=== PATIENT | female | born 1945 | race Caucasian/White ===

== ENCOUNTER 2017-08-22 11:21 | Inpatient (IN) | payer MEDICARE, MEDICAID ==
[~2017-08-22] VITALS: Ht 162.6 cm; Wt 52.0 kg
[~2017-08-22 11:21] MED LIST: AZIT-55 PO; COMIN IH; CYAN1TAB41; ESTR0.6261 PO; FEXO-61 PO; FLUT16SP12; KEN0.1O TP; LISI-600 PO; LORA-512 PO; METO50TA7 PO; MOME17SP BOTHNARES; MULT1TAB74 PO; NYST30CR2 TP; OMEG-79 PO; OMEP20TA5 PO; OXYB5TAB11 PO; RANI150T8 PO; SIME125C87 CORPAK; TRAZ-143 PO
[2017-08-22 12:28] LABS: BASOPHILS % (AUTO) 0.2 % (0-1); EOSINOPHILS # (AUTO) 0.2 X10'3 (0-0.9); EOSINOPHILS % (AUTO) 1.8 % (0-6); HEMATOCRIT 39.4 % (35.0-45.0); HEMOGLOBIN 13.3 g/dl (12.0-16.0); LYMPHOCYTES # (AUTO) 1.8 X10'3 (1.1-4.8); LYMPHOCYTES % (AUTO) 17.1 % (21-51); MEAN CORPUSCULAR HEMOGLOBIN 31.7 PG (27.0-31.0); MEAN CORPUSCULAR HGB CONC 33.7 % (33.0-36.5); MEAN PLATELET VOLUME 9.4 FL (7.4-10.4); MONOCYTES # (AUTO) 0.4 X10'3 (0-0.9); NEUTROPHILS # (AUTO) 8.2 X10'3 (1.8-7.7); NEUTROPHILS % (AUTO) 76.9 % (42-75); PLATELET COUNT 270 X10'3 (140-440); RED CELL DISTRIBUTION WIDTH 13.8 % (11.5-14.5); WHITE BLOOD COUNT 10.7 X10'3 (4.5-11.0)
[2017-08-22] MEDS ORDERED: ASPI-611 PO (12:35)
[2017-08-22] MEDS ORDERED: CHOL10002 PO (12:35)
[2017-08-22] MEDS ORDERED: LACT1CAP65 PO (12:35)
[2017-08-22] MEDS ORDERED: LOSA50TA3 PO (12:38)
[2017-08-22 12:46] LABS: PARTIAL THROMBOPLASTIN TIME 28 SECONDS (22-32)
[2017-08-22 12:50] LABS: ALANINE AMINOTRANSFERASE 25 U/L (12-78); ALBUMIN 3.6 G/DL (3.4-5.0); ALBUMIN/GLOBULIN RATIO 0.9 (1.1-1.5); ALKALINE PHOSPHATASE 77 IU/L (46-116); ANION GAP 7 (8-16); ASPARTATE AMINO TRANSFERASE 17 U/L (10-37); BILIRUBIN,TOTAL 0.3 MG/DL (0.1-1.0); BLOOD UREA NITROGEN 10 MG/DL (7-18); CALCIUM 9.7 MG/DL (8.5-10.1); CHLORIDE 102 MMOL/L (99-107); CREATININE 0.83 MG/DL (0.40-0.90); GLUCOSE 127 MG/DL (70-104); POTASSIUM 4.1 MMOL/L (3.5-5.1); SODIUM 137 MMOL/L (135-145); TOTAL CARBON DIOXIDE 28.4 MMOL/L (24-32); TOTAL PROTEIN 7.5 G/DL (6.4-8.2); eGFR 68 ML/MIN
[2017-08-22 12:54] LABS: TROPONIN I < 0.04 NG/ML (0.0-0.05)
[2017-08-22] MEDS ORDERED: aspirin 325mg tablet PO ONE (13:30)
[2017-08-22] MEDS ORDERED: HYDROcodone/acetaminophen 5mg/325mg tablet PO PRN (13:45)
[2017-08-22] MEDS ORDERED: magnesium 2GM in 50ml NS 50 ML IV PRN (13:45)
[2017-08-22] MEDS ORDERED: ipratropium/albuterol 3ml nebule NEB PRN (13:45)
[2017-08-22] MEDS ORDERED: magnesium 4gm in 100ml NS 100 ML IV PRN (13:45)
[2017-08-22] MEDS ORDERED: magnesium hydroxide 30ml (MOM) UD suspension PO PRN (13:45)
[2017-08-22] MEDS ORDERED: potassium Cl 20 mEq SR tablet PO PRN ×2 (13:45)
[2017-08-22] MEDS ORDERED: mag hydrox/Alum hydrox/simeth 30ml oral suspension PO PRN (13:45)
[2017-08-22] MEDS ORDERED: magnesium Cl slow-release 64mg tablet PO PRN (13:45)
[2017-08-22] MEDS ORDERED: albuterol 2.5 MG/3 ML nebule NEB PRN (13:45)
[2017-08-22] MEDS ORDERED: acetaminophen 325mg tablet PO PRN (13:45)
[2017-08-22] MEDS ORDERED: ondansetron/PF 4mg/2ml inj IV PRN (13:45)
[2017-08-22] MEDS ORDERED: HYDROcodone/acetaminophen 10/325mg tab PO PRN (13:45)
[2017-08-22] MEDS ORDERED: potassium Cl 40MEQ/NS 500ml 500 ML IV PRN ×2 (13:45)
[2017-08-22 14:11] LABS: CHOL/HDL RATIO 4.5 (0.00-4.99); CHOLESTEROL 183 MG/DL (0-200); HDL CHOLESTEROL 41 MG/DL (35-60); LDL CHOLESTEROL 102 MG/DL (50-100); TRIGLYCERIDES 212 MG/DL (20-135)
[2017-08-22 16:11] VITALS: BP 202/99
[2017-08-22] MEDS: normal saline 1000ml 1,000 ML IV SCH (16:57)
[2017-08-22 18:00] VITALS: BP 188/102
[2017-08-22] MEDS ORDERED: FEXOFENADINE HCL 60 MG PO SCH (20:00)
[2017-08-22] MEDS: RANITIDINE HCL PO SCH (20:00)
[2017-08-22] MEDS: triamcinolone acet 0.1% cream 15gm TP SCH (20:00)
[2017-08-22] MEDS: traZODone 50mg tablet PO SCH (20:50)
[2017-08-22] MEDS: famotidine 20mg tablet PO SCH (20:50)
[2017-08-22] MEDS: pantoprazole 40mg Tablet.DR PO SCH (20:50)
[2017-08-22] MEDS: oxybutynin 5mg tablet PO SCH (20:51)
[2017-08-22] MEDS ORDERED: OMEPRAZOLE PO SCH (21:00)
[2017-08-22 22:00] VITALS: BP 163/75
[2017-08-23] VITALS (7 sets, daily range): BP systolic 147–189; BP diastolic 72–89
[2017-08-23] MEDS: normal saline 1000ml 1,000 ML IV SCH ×2 (03:04→05:47)
[2017-08-23 06:42] LABS: BASOPHILS % (AUTO) 0.5 % (0-1); EOSINOPHILS # (AUTO) 0.3 X10'3 (0-0.9); EOSINOPHILS % (AUTO) 3.5 % (0-6); HEMATOCRIT 34.4 % (35.0-45.0); HEMOGLOBIN 11.6 g/dl (12.0-16.0); LYMPHOCYTES # (AUTO) 3.3 X10'3 (1.1-4.8); LYMPHOCYTES % (AUTO) 46.3 % (21-51); MEAN CORPUSCULAR HEMOGLOBIN 31.6 PG (27.0-31.0); MEAN CORPUSCULAR HGB CONC 33.8 % (33.0-36.5); MEAN CORPUSCULAR VOLUME 93.6 FL (78-98); MEAN PLATELET VOLUME 9.7 FL (7.4-10.4); MONOCYTES # (AUTO) 0.5 X10'3 (0-0.9); NEUTROPHILS # (AUTO) 3.1 X10'3 (1.8-7.7); NEUTROPHILS % (AUTO) 42.7 % (42-75); PLATELET COUNT 228 X10'3 (140-440); RED BLOOD COUNT 3.68 X10'6 (4.20-5.60); RED CELL DISTRIBUTION WIDTH 13.9 % (11.5-14.5); WHITE BLOOD COUNT 7.2 X10'3 (4.5-11.0)
[2017-08-23 06:50] LABS: ALANINE AMINOTRANSFERASE 25 U/L (12-78); ALBUMIN/GLOBULIN RATIO 0.9 (1.1-1.5); ALKALINE PHOSPHATASE 65 IU/L (46-116); ANION GAP 4 (8-16); ASPARTATE AMINO TRANSFERASE 16 U/L (10-37); BILIRUBIN,TOTAL 0.4 MG/DL (0.1-1.0); BLOOD UREA NITROGEN 8 MG/DL (7-18); BUN/CREATININE RATIO 10.5 (6.6-38.0); CALCIUM 8.7 MG/DL (8.5-10.1); CHLORIDE 109 MMOL/L (99-107); CREATININE 0.76 MG/DL (0.40-0.90); GLUCOSE 107 MG/DL (70-104); MAGNESIUM 1.7 MG/DL (1.5-2.4); POTASSIUM 3.7 MMOL/L (3.5-5.1); SODIUM 142 MMOL/L (135-145); TOTAL CARBON DIOXIDE 28.7 MMOL/L (24-32); TOTAL PROTEIN 6.3 G/DL (6.4-8.2); eGFR 75 ML/MIN
[2017-08-23] MEDS ORDERED: non-formulary drug (Aspirin (Aspir 81) 1 TAB) PO SCH (08:00)
[2017-08-23] MEDS ORDERED: non-formulary drug (Loratadine* (Alavert*) 1 TAB) PO SCH (08:00)
[2017-08-23] MEDS ORDERED: METOPROLOL SUCCINATE PO SCH (08:00)
[2017-08-23] MEDS: RANITIDINE HCL PO SCH ×2 (08:00→20:00)
[2017-08-23] MEDS: triamcinolone acet 0.1% cream 15gm TP SCH ×2 (08:00→20:59)
[2017-08-23] MEDS: lisinopril 10 MG tablet PO SCH (08:30)
[2017-08-23] MEDS: aspirin 81mg tablet.DR PO SCH (08:30)
[2017-08-23] MEDS: losartan 50mg tablet PO SCH (08:30)
[2017-08-23] MEDS: oxybutynin 5mg tablet PO SCH ×2 (08:30→20:58)
[2017-08-23] MEDS: famotidine 20mg tablet PO SCH ×2 (08:30→20:58)
[2017-08-23] MEDS: metoprolol succinate 25mg (24-HOUR) SR. Tablet PO SCH (08:30)
[2017-08-23] MEDS: atorvastatin 10mg tablet PO SCH (08:30)
[2017-08-23] MEDS: aspirin 325mg tablet, delayed-release (Ecotrin) PO SCH (08:30)
[2017-08-23] MEDS: pantoprazole 40mg Tablet.DR PO SCH ×2 (08:30→20:58)
[2017-08-23] MEDS: loratadine 10mg tablet PO SCH (08:31)
[2017-08-23] MEDS: SIMETHICONE 125 MG CAPSULE PO SCH (08:31)
[2017-08-23] MEDS: K and/or MAG REPLACEMENT MC SCH (08:34)
[2017-08-23] MEDS: traZODone 50mg tablet PO SCH (20:58)
[2017-08-24] VITALS (8 sets, daily range): BP systolic 141–193; BP diastolic 72–88
[2017-08-24 05:25] LABS: BASOPHILS # (AUTO) 0.1 X10'3 (0-0.2); BASOPHILS % (AUTO) 0.6 % (0-1); EOSINOPHILS # (AUTO) 0.3 X10'3 (0-0.9); EOSINOPHILS % (AUTO) 3.4 % (0-6); HEMATOCRIT 34.7 % (35.0-45.0); HEMOGLOBIN 11.4 g/dl (12.0-16.0); LYMPHOCYTES # (AUTO) 3.2 X10'3 (1.1-4.8); LYMPHOCYTES % (AUTO) 36.3 % (21-51); MEAN CORPUSCULAR HEMOGLOBIN 31.2 PG (27.0-31.0); MEAN CORPUSCULAR HGB CONC 32.8 % (33.0-36.5); MEAN PLATELET VOLUME 9.7 FL (7.4-10.4); MONOCYTES # (AUTO) 0.7 X10'3 (0-0.9); MONOCYTES % (AUTO) 7.5 % (2-12); NEUTROPHILS # (AUTO) 4.6 X10'3 (1.8-7.7); NEUTROPHILS % (AUTO) 52.2 % (42-75); PLATELET COUNT 226 X10'3 (140-440); RED BLOOD COUNT 3.65 X10'6 (4.20-5.60); RED CELL DISTRIBUTION WIDTH 13.9 % (11.5-14.5); WHITE BLOOD COUNT 8.8 X10'3 (4.5-11.0)
[2017-08-24 05:47] LABS: ALANINE AMINOTRANSFERASE 23 U/L (12-78); ALBUMIN 3.1 G/DL (3.4-5.0); ALBUMIN/GLOBULIN RATIO 0.9 (1.1-1.5); ALKALINE PHOSPHATASE 66 IU/L (46-116); ANION GAP 6 (8-16); ASPARTATE AMINO TRANSFERASE 18 U/L (10-37); BILIRUBIN,TOTAL 0.5 MG/DL (0.1-1.0); BLOOD UREA NITROGEN 10 MG/DL (7-18); CALCIUM 8.7 MG/DL (8.5-10.1); CHLORIDE 106 MMOL/L (99-107); CREATININE 0.77 MG/DL (0.40-0.90); GLUCOSE 114 MG/DL (70-104); MAGNESIUM 1.6 MG/DL (1.5-2.4); POTASSIUM 3.7 MMOL/L (3.5-5.1); SODIUM 139 MMOL/L (135-145); TOTAL CARBON DIOXIDE 26.7 MMOL/L (24-32); TOTAL PROTEIN 6.5 G/DL (6.4-8.2); eGFR 74 ML/MIN
[2017-08-24] MEDS: famotidine 20mg tablet PO SCH ×2 (07:35→22:15)
[2017-08-24] MEDS: metoprolol succinate 25mg (24-HOUR) SR. Tablet PO SCH (07:36)
[2017-08-24] MEDS: pantoprazole 40mg Tablet.DR PO SCH ×2 (07:36→22:15)
[2017-08-24] MEDS: aspirin 325mg tablet, delayed-release (Ecotrin) PO SCH (07:36)
[2017-08-24] MEDS: loratadine 10mg tablet PO SCH (07:36)
[2017-08-24] MEDS: atorvastatin 10mg tablet PO SCH (07:36)
[2017-08-24] MEDS: losartan 50mg tablet PO SCH (07:36)
[2017-08-24] MEDS: SIMETHICONE 125 MG CAPSULE PO SCH (07:36)
[2017-08-24] MEDS: lisinopril 10 MG tablet PO SCH (07:36)
[2017-08-24] MEDS: aspirin 81mg tablet.DR PO SCH (07:36)
[2017-08-24] MEDS: oxybutynin 5mg tablet PO SCH ×2 (07:36→22:16)
[2017-08-24] MEDS: RANITIDINE HCL PO SCH ×2 (08:00→20:00)
[2017-08-24] MEDS: K and/or MAG REPLACEMENT MC SCH (08:00)
[2017-08-24] MEDS: triamcinolone acet 0.1% cream 15gm TP SCH ×2 (08:00→22:16)
[2017-08-24] MEDS ORDERED: iohexol 350 MG/ML 50ML vial IV ONE (13:14)
[2017-08-24] MEDS: traZODone 50mg tablet PO SCH (22:15)
[2017-08-25 02:00] VITALS: BP 141/60
[2017-08-25 02:56] VITALS: BP 137/74
[2017-08-25 07:06] LABS: BASOPHILS # (AUTO) 0.1 X10'3 (0-0.2); BASOPHILS % (AUTO) 0.7 % (0-1); EOSINOPHILS # (AUTO) 0.2 X10'3 (0-0.9); HEMATOCRIT 36.5 % (35.0-45.0); HEMOGLOBIN 12.2 g/dl (12.0-16.0); LYMPHOCYTES % (AUTO) 38.1 % (21-51); MEAN CORPUSCULAR HEMOGLOBIN 31.3 PG (27.0-31.0); MEAN CORPUSCULAR HGB CONC 33.4 % (33.0-36.5); MEAN CORPUSCULAR VOLUME 93.5 FL (78-98); MEAN PLATELET VOLUME 9.2 FL (7.4-10.4); MONOCYTES # (AUTO) 0.6 X10'3 (0-0.9); MONOCYTES % (AUTO) 7.1 % (2-12); NEUTROPHILS % (AUTO) 51.1 % (42-75); PLATELET COUNT 227 X10'3 (140-440); RED CELL DISTRIBUTION WIDTH 13.6 % (11.5-14.5); WHITE BLOOD COUNT 7.8 X10'3 (4.5-11.0)
[2017-08-25 07:09] VITALS: BP 152/75
[2017-08-25 07:24] LABS: ALANINE AMINOTRANSFERASE 31 U/L (12-78); ALBUMIN 3.3 G/DL (3.4-5.0); ALBUMIN/GLOBULIN RATIO 0.9 (1.1-1.5); ALKALINE PHOSPHATASE 70 IU/L (46-116); ANION GAP 7 (8-16); ASPARTATE AMINO TRANSFERASE 18 U/L (10-37); BILIRUBIN,TOTAL 0.5 MG/DL (0.1-1.0); BLOOD UREA NITROGEN 10 MG/DL (7-18); BUN/CREATININE RATIO 11.1 (6.6-38.0); CALCIUM 9.3 MG/DL (8.5-10.1); CHLORIDE 106 MMOL/L (99-107); GLUCOSE 124 MG/DL (70-104); MAGNESIUM 1.7 MG/DL (1.5-2.4); POTASSIUM 3.7 MMOL/L (3.5-5.1); SODIUM 139 MMOL/L (135-145); TOTAL CARBON DIOXIDE 25.8 MMOL/L (24-32); TOTAL PROTEIN 6.8 G/DL (6.4-8.2); eGFR 62 ML/MIN
[2017-08-25] MEDS: K and/or MAG REPLACEMENT MC SCH (08:00)
[2017-08-25] MEDS: RANITIDINE HCL PO SCH (08:00)
[2017-08-25] MEDS: aspirin 325mg tablet, delayed-release (Ecotrin) PO SCH ×2 (08:00→11:54)
[2017-08-25] MEDS: aspirin 81mg tablet.DR PO SCH ×2 (08:00→11:54)
[2017-08-25] MEDS: loratadine 10mg tablet PO SCH (09:26)
[2017-08-25] MEDS: SIMETHICONE 125 MG CAPSULE PO SCH (09:27)
[2017-08-25] MEDS: losartan 50mg tablet PO SCH (09:27)
[2017-08-25] MEDS: famotidine 20mg tablet PO SCH ×2 (09:27→20:34)
[2017-08-25] MEDS: pantoprazole 40mg Tablet.DR PO SCH (09:27)
[2017-08-25] MEDS: oxybutynin 5mg tablet PO SCH ×2 (09:27→20:33)
[2017-08-25] MEDS: atorvastatin 10mg tablet PO SCH (09:28)
[2017-08-25] MEDS: lisinopril 10 MG tablet PO SCH (09:28)
[2017-08-25] MEDS: metoprolol succinate 25mg (24-HOUR) SR. Tablet PO SCH (09:28)
[2017-08-25 11:00] VITALS: BP 160/91
[2017-08-25] MEDS: triamcinolone acet 0.1% cream 15gm TP SCH ×2 (11:02→20:00)
[2017-08-25 16:20] VITALS: BP 167/83
[2017-08-25] MEDS: traZODone 50mg tablet PO SCH (20:33)
[2017-08-25 22:00] VITALS: BP 140/77
[2017-08-26 05:00] VITALS: BP 129/68
[2017-08-26 07:19] LABS: BASOPHILS % (AUTO) 0.5 % (0-1); EOSINOPHILS # (AUTO) 0.2 X10'3 (0-0.9); HEMATOCRIT 35.7 % (35.0-45.0); HEMOGLOBIN 11.8 g/dl (12.0-16.0); LYMPHOCYTES # (AUTO) 2.5 X10'3 (1.1-4.8); LYMPHOCYTES % (AUTO) 32.8 % (21-51); MEAN CORPUSCULAR HEMOGLOBIN 31.2 PG (27.0-31.0); MEAN CORPUSCULAR HGB CONC 33.1 % (33.0-36.5); MEAN CORPUSCULAR VOLUME 94.3 FL (78-98); MEAN PLATELET VOLUME 9.3 FL (7.4-10.4); MONOCYTES # (AUTO) 0.6 X10'3 (0-0.9); MONOCYTES % (AUTO) 7.5 % (2-12); NEUTROPHILS # (AUTO) 4.3 X10'3 (1.8-7.7); NEUTROPHILS % (AUTO) 56.2 % (42-75); PLATELET COUNT 230 X10'3 (140-440); RED BLOOD COUNT 3.79 X10'6 (4.20-5.60); RED CELL DISTRIBUTION WIDTH 13.8 % (11.5-14.5); WHITE BLOOD COUNT 7.7 X10'3 (4.5-11.0)
[2017-08-26 07:42] LABS: ALANINE AMINOTRANSFERASE 32 U/L (12-78); ALBUMIN 3.3 G/DL (3.4-5.0); ALBUMIN/GLOBULIN RATIO 0.9 (1.1-1.5); ALKALINE PHOSPHATASE 70 IU/L (46-116); ANION GAP 8 (8-16); ASPARTATE AMINO TRANSFERASE 13 U/L (10-37); BILIRUBIN,TOTAL 0.4 MG/DL (0.1-1.0); BLOOD UREA NITROGEN 12 MG/DL (7-18); BUN/CREATININE RATIO 14.1 (6.6-38.0); CALCIUM 9.3 MG/DL (8.5-10.1); CHLORIDE 106 MMOL/L (99-107); CREATININE 0.85 MG/DL (0.40-0.90); GLUCOSE 121 MG/DL (70-104); MAGNESIUM 1.6 MG/DL (1.5-2.4); POTASSIUM 3.9 MMOL/L (3.5-5.1); SODIUM 140 MMOL/L (135-145); TOTAL CARBON DIOXIDE 26.5 MMOL/L (24-32); eGFR 66 ML/MIN
[2017-08-26] MEDS: pantoprazole 40mg Tablet.DR PO SCH (08:00)
[2017-08-26] MEDS: K and/or MAG REPLACEMENT MC SCH (08:00)
[2017-08-26] MEDS: loratadine 10mg tablet PO SCH (08:31)
[2017-08-26] MEDS: metoprolol succinate 25mg (24-HOUR) SR. Tablet PO SCH (08:32)
[2017-08-26] MEDS: SIMETHICONE 125 MG CAPSULE PO SCH (08:32)
[2017-08-26] MEDS: triamcinolone acet 0.1% cream 15gm TP SCH ×2 (08:32→19:10)
[2017-08-26] MEDS: oxybutynin 5mg tablet PO SCH ×2 (08:32→19:09)
[2017-08-26] MEDS: atorvastatin 10mg tablet PO SCH (08:32)
[2017-08-26] MEDS: aspirin 325mg tablet, delayed-release (Ecotrin) PO SCH (08:32)
[2017-08-26] MEDS: lisinopril 10 MG tablet PO SCH (08:32)
[2017-08-26] MEDS: losartan 50mg tablet PO SCH (08:32)
[2017-08-26] MEDS: famotidine 20mg tablet PO SCH ×2 (08:32→19:09)
[2017-08-26 10:00] VITALS: BP 148/73
[2017-08-26 15:00] VITALS: BP 171/72
[2017-08-26 18:30] VITALS: BP 170/80
[2017-08-26] MEDS: amLODIPine 5mg tablet PO SCH (19:09)
[2017-08-26] MEDS: traZODone 50mg tablet PO SCH (20:27)
[2017-08-26 22:00] VITALS: BP 122/70
[2017-08-27 05:00] VITALS: BP 114/49
[2017-08-27 06:25] LABS: BASOPHILS % (AUTO) 0.5 % (0-1); EOSINOPHILS # (AUTO) 0.3 X10'3 (0-0.9); HEMATOCRIT 33.9 % (35.0-45.0); HEMOGLOBIN 11.3 g/dl (12.0-16.0); LYMPHOCYTES # (AUTO) 2.9 X10'3 (1.1-4.8); LYMPHOCYTES % (AUTO) 39.4 % (21-51); MEAN CORPUSCULAR HEMOGLOBIN 31.4 PG (27.0-31.0); MEAN CORPUSCULAR HGB CONC 33.3 % (33.0-36.5); MEAN CORPUSCULAR VOLUME 94.3 FL (78-98); MEAN PLATELET VOLUME 9.6 FL (7.4-10.4); MONOCYTES # (AUTO) 0.5 X10'3 (0-0.9); MONOCYTES % (AUTO) 7.5 % (2-12); NEUTROPHILS # (AUTO) 3.6 X10'3 (1.8-7.7); NEUTROPHILS % (AUTO) 48.6 % (42-75); PLATELET COUNT 225 X10'3 (140-440); RED CELL DISTRIBUTION WIDTH 13.6 % (11.5-14.5); WHITE BLOOD COUNT 7.3 X10'3 (4.5-11.0)
[2017-08-27 07:15] LABS: ALANINE AMINOTRANSFERASE 25 U/L (12-78); ALBUMIN 3.1 G/DL (3.4-5.0); ALBUMIN/GLOBULIN RATIO 0.9 (1.1-1.5); ALKALINE PHOSPHATASE 67 IU/L (46-116); ANION GAP 5 (8-16); ASPARTATE AMINO TRANSFERASE 20 U/L (10-37); BILIRUBIN,TOTAL 0.3 MG/DL (0.1-1.0); BLOOD UREA NITROGEN 13 MG/DL (7-18); BUN/CREATININE RATIO 14.6 (6.6-38.0); CALCIUM 8.6 MG/DL (8.5-10.1); CHLORIDE 103 MMOL/L (99-107); CREATININE 0.89 MG/DL (0.40-0.90); GLUCOSE 117 MG/DL (70-104); MAGNESIUM 1.5 MG/DL (1.5-2.4); POTASSIUM 3.7 MMOL/L (3.5-5.1); SODIUM 135 MMOL/L (135-145); TOTAL CARBON DIOXIDE 27.5 MMOL/L (24-32); TOTAL PROTEIN 6.4 G/DL (6.4-8.2); eGFR 63 ML/MIN
[2017-08-27] MEDS: K and/or MAG REPLACEMENT MC SCH (08:00)
[2017-08-27] MEDS: triamcinolone acet 0.1% cream 15gm TP SCH ×2 (08:00→20:22)
[2017-08-27] MEDS: losartan 50mg tablet PO SCH (08:51)
[2017-08-27] MEDS: loratadine 10mg tablet PO SCH (08:51)
[2017-08-27] MEDS: SIMETHICONE 125 MG CAPSULE PO SCH (08:52)
[2017-08-27] MEDS: clopidogrel 75mg tablet PO SCH (08:52)
[2017-08-27] MEDS: metoprolol succinate 25mg (24-HOUR) SR. Tablet PO SCH (08:52)
[2017-08-27] MEDS: atorvastatin 10mg tablet PO SCH (08:52)
[2017-08-27] MEDS: pantoprazole 40mg Tablet.DR PO SCH (08:52)
[2017-08-27] MEDS: amLODIPine 5mg tablet PO SCH (08:52)
[2017-08-27] MEDS: oxybutynin 5mg tablet PO SCH ×2 (08:52→20:22)
[2017-08-27] MEDS: famotidine 20mg tablet PO SCH ×2 (08:52→20:22)
[2017-08-27 10:00] VITALS: BP 142/69
[2017-08-27 14:30] VITALS: BP 142/80
[2017-08-27 18:00] VITALS: BP 149/67
[2017-08-27] MEDS: traZODone 50mg tablet PO SCH (20:22)
[2017-08-27 22:00] VITALS: BP 118/58
[2017-08-28 02:00] VITALS: BP 123/70
[2017-08-28 05:00] VITALS: BP 100/51
[2017-08-28] MEDS: K and/or MAG REPLACEMENT MC SCH (08:00)
[2017-08-28] MEDS: metoprolol succinate 25mg (24-HOUR) SR. Tablet PO SCH (08:00)
[2017-08-28] MEDS: famotidine 20mg tablet PO SCH ×2 (08:00→19:04)
[2017-08-28] MEDS: SIMETHICONE 125 MG CAPSULE PO SCH (08:00)
[2017-08-28] MEDS: losartan 50mg tablet PO SCH (08:00)
[2017-08-28] MEDS: amLODIPine 5mg tablet PO SCH (08:00)
[2017-08-28] MEDS: loratadine 10mg tablet PO SCH (08:00)
[2017-08-28] MEDS: pantoprazole 40mg Tablet.DR PO SCH (08:00)
[2017-08-28] MEDS: oxybutynin 5mg tablet PO SCH ×2 (08:00→19:04)
[2017-08-28] MEDS: atorvastatin 10mg tablet PO SCH (08:00)
[2017-08-28] MEDS: clopidogrel 75mg tablet PO SCH (08:00)
[2017-08-28] MEDS: triamcinolone acet 0.1% cream 15gm TP SCH ×2 (09:00→19:58)
[2017-08-28 10:00] VITALS: BP 106/59
[2017-08-28 15:00] VITALS: BP 119/71
[2017-08-28] MEDS: potassium CL 20mEq in D5-1/2NS 1,000 ML IV SCH (17:32)
[2017-08-28] MEDS: pantoprazole 40 MG vial IV SCH (17:32)
[2017-08-28] MEDS: enoxaparin 40mg/0.4ml syringe SUBCUT SCH (17:32)
[2017-08-28 18:00] VITALS: BP 127/61
[2017-08-28] MEDS: traZODone 50mg tablet PO SCH (21:00)
[2017-08-28 22:00] VITALS: BP_SYST 110; BP_SYST 127; BP_DIAS 71; BP_DIAS 72
[2017-08-29] VITALS (7 sets, daily range): BP systolic 110–175; BP diastolic 44–83
[2017-08-29] MEDS: potassium CL 20mEq in D5-1/2NS 1,000 ML IV SCH ×3 (02:50→20:14)
[2017-08-29] MEDS: K and/or MAG REPLACEMENT MC SCH (07:21)
[2017-08-29] MEDS: losartan 50mg tablet PO SCH (07:22)
[2017-08-29] MEDS: loratadine 10mg tablet PO SCH (07:22)
[2017-08-29] MEDS: oxybutynin 5mg tablet PO SCH ×2 (07:22→19:56)
[2017-08-29] MEDS: SIMETHICONE 125 MG CAPSULE PO SCH (07:23)
[2017-08-29] MEDS: amLODIPine 5mg tablet PO SCH (07:23)
[2017-08-29] MEDS: clopidogrel 75mg tablet PO SCH (07:23)
[2017-08-29] MEDS: famotidine 20mg tablet PO SCH ×2 (07:23→19:56)
[2017-08-29] MEDS: atorvastatin 10mg tablet PO SCH (07:23)
[2017-08-29] MEDS: metoprolol succinate 25mg (24-HOUR) SR. Tablet PO SCH (07:24)
[2017-08-29] MEDS: triamcinolone acet 0.1% cream 15gm TP SCH ×2 (08:00→19:59)
[2017-08-29] MEDS: pantoprazole 40 MG vial IV SCH (08:37)
[2017-08-29] MEDS: enoxaparin 40mg/0.4ml syringe SUBCUT SCH (08:37)
[2017-08-29] MEDS ORDERED: enalaprilat dihydrate 2.5mg/2ml vial IV PRN (15:15)
[2017-08-29] MEDS: traZODone 50mg tablet PO SCH (19:56)
[2017-08-30 02:00] VITALS: BP 159/70
[2017-08-30 05:00] VITALS: BP 133/80
[2017-08-30] MEDS ORDERED: cloNIDine 0.2 MG/24 HR patch (7 day patch) TD SCH (07:45)
[2017-08-30] MEDS: metoprolol succinate 25mg (24-HOUR) SR. Tablet PO SCH (08:00)
[2017-08-30] MEDS: triamcinolone acet 0.1% cream 15gm TP SCH (08:00)
[2017-08-30] MEDS: SIMETHICONE 125 MG CAPSULE PO SCH (08:00)
[2017-08-30] MEDS: K and/or MAG REPLACEMENT MC SCH (08:00)
[2017-08-30] MEDS: famotidine 20mg tablet PO SCH (10:27)
[2017-08-30] MEDS: amLODIPine 5mg tablet PO SCH (10:27)
[2017-08-30] MEDS: oxybutynin 5mg tablet PO SCH (10:28)
[2017-08-30] MEDS: atorvastatin 10mg tablet PO SCH (10:28)
[2017-08-30] MEDS: loratadine 10mg tablet PO SCH (10:28)
[2017-08-30] MEDS: enoxaparin 40mg/0.4ml syringe SUBCUT SCH (10:30)
[2017-08-30] MEDS: clopidogrel 75mg tablet PO SCH (10:31)
[2017-08-30] MEDS: pantoprazole 40 MG vial IV SCH (10:36)
[2017-08-30] MEDS: losartan 50mg tablet PO SCH (10:36)
[2017-08-30] MEDS: potassium CL 20mEq in D5-1/2NS 1,000 ML IV SCH (10:47)
[2017-08-30 11:07] LABS: ANTITHROMBIN ACTIVITY 110 % (75-135); ANTITHROMBIN ANTIGEN 101 % (72-124)
[2017-08-31 08:10] LABS: PROTEIN S, FREE 79 % (57-157); PROTEIN S, TOTAL 74 % (60-150)
== END 2017-08-30 15:10 | DRG 65 ==
LOC: ER 11:22 → ED HOLD 13:44 → ORTHO 4S 15:43
PROVIDERS: ADMIT Internal Medicine; ATTEND Family Medicine
PROC: B3281ZZ Computerized Tomography (CT Scan) of Bilateral Internal Carotid Arteries using Low Osmolar Contrast (ICD-10-PCS; principal; 2017-08-24)
PROC: B32G1ZZ Computerized Tomography (CT Scan) of Bilateral Vertebral Arteries using Low Osmolar Contrast (ICD-10-PCS; 2017-08-24)
DX: I63.9 Cerebral infarction, unspecified (principal); G81.04 Flaccid hemiplegia affecting left nondominant side; I67.1 Cerebral aneurysm, nonruptured; R13.10 Dysphagia, unspecified; D64.9 Anemia, unspecified; R47.01 Aphasia; W18.39XA Other fall on same level, initial encounter; J44.9 Chronic obstructive pulmonary disease, unspecified; R47.81 Slurred speech; R73.9 Hyperglycemia, unspecified; K21.9 Gastro-esophageal reflux disease without esophagitis; Z60.2 Problems related to living alone; E53.8 Deficiency of other specified B group vitamins; E78.5 Hyperlipidemia, unspecified; G47.00 Insomnia, unspecified; H54.40 Blindness, one eye, unspecified eye; I10 Essential (primary) hypertension; I65.09 Occlusion and stenosis of unspecified vertebral artery; N32.81 Overactive bladder; Z90.710 Acquired absence of both cervix and uterus; Z88.8 Allergy status to other drugs, medicaments and biological substances; Z88.2 Allergy status to sulfonamides; Z79.82 Long term (current) use of aspirin; Z87.891 Personal history of nicotine dependence; Z86.73 Personal history of transient ischemic attack (TIA), and cerebral infarction without residual deficits; Y93.89 Activity, other specified; Y92.89 Other specified places as the place of occurrence of the external cause; Y99.8 Other external cause status
CPT/HCPCS: 36415; 70450; 70496; 70498; 70544; 70551; 71010; 74018; 80053; 80061; 82948; 83735; 83891; 83894; 83898; 83912; 84484; 85025; 85300; 85301; 85303; 85305; 85306; 85597; 85610; 85730; 86147; 87070; 92616; 93005; 93306; 93880; 94760; 97110; 97112; 97116; 97162; 97164; 97530; 99285; A4315; A4353; A6446; C9113; J1650; J7030; Q9967

== ENCOUNTER 2018-09-02 23:46 | Emergency (ER) | payer MEDICARE, MEDICAID ==
[~2018-09-02] VITALS: Ht 162.6 cm; Wt 50.5 kg
[~2018-09-02 23:46] MED LIST changes: +ASPI-611 PO; -AZIT-55 PO; +AZIT-72 PO; +CHOL10002 PO; +LACT1CAP65 PO; +LOSA50TA3 PO; -SIME125C87 CORPAK; +SIME125C88 CORPAK; -TRAZ-143 PO; +TRAZ-218 PO
[2018-09-02 23:48] VITALS: BP 147/81
[2018-09-03 01:11] LABS: CLARITY,URINE TURBID (Clear); COLOR,URINE YELLOW (Yellow); GLUCOSE, URINE NEGATIVE (Neg); KETONES,URINE NEGATIVE (Neg); LEUKOCYTE ESTERASE ,URINE LARGE (Neg); NITRITES, URINE POSITIVE (Neg); OCCULT BLOOD,URINE MODERATE (Neg); PH,URINE 7.5 (4.8-8.0); PROTEIN,URINE 100 mg/dl (Neg); UROBILINOGEN,URINE 0.2 E.U/dL (0.2-1.0)
[2018-09-03 01:12] LABS: UA COLLECTION TYPE STRAIGHT CATH
[2018-09-03 01:16] LABS: BASOPHILS % (AUTO) 0.4 % (0-1); EOSINOPHILS # (AUTO) 0.3 X10'3 (0-0.9); EOSINOPHILS % (AUTO) 2.7 % (0-6); HEMATOCRIT 33.5 % (35.0-45.0); HEMOGLOBIN 10.8 g/dl (12.0-16.0); LYMPHOCYTES # (AUTO) 2.9 X10'3 (1.1-4.8); LYMPHOCYTES % (AUTO) 29.6 % (21-51); MEAN CORPUSCULAR HEMOGLOBIN 30.1 PG (27.0-31.0); MEAN CORPUSCULAR HGB CONC 32.2 % (33.0-36.5); MEAN CORPUSCULAR VOLUME 93.7 FL (78-98); MEAN PLATELET VOLUME 8.9 FL (7.4-10.4); MONOCYTES # (AUTO) 0.6 X10'3 (0-0.9); MONOCYTES % (AUTO) 5.9 % (2-12); NEUTROPHILS % (AUTO) 61.4 % (42-75); PLATELET COUNT 410 X10'3 (140-440); RED BLOOD COUNT 3.57 X10'6 (4.20-5.60); RED CELL DISTRIBUTION WIDTH 13.8 % (11.5-14.5); WHITE BLOOD COUNT 9.8 X10'3 (4.5-11.0)
[2018-09-03 01:19] LABS: ALANINE AMINOTRANSFERASE 36 U/L (12-78); ALBUMIN 3.4 G/DL (3.4-5.0); ALBUMIN/GLOBULIN RATIO 0.9 (1.1-1.5); ALKALINE PHOSPHATASE 87 IU/L (46-116); ANION GAP 9 (8-16); ASPARTATE AMINO TRANSFERASE 19 U/L (10-37); BILIRUBIN,TOTAL 0.2 MG/DL (0.1-1.0); BLOOD UREA NITROGEN 14 MG/DL (7-18); BUN/CREATININE RATIO 20.6 (6.6-38.0); CALCIUM 9.4 MG/DL (8.5-10.1); CHLORIDE 98 MMOL/L (99-107); CREATININE 0.68 MG/DL (0.40-0.90); GLUCOSE 113 MG/DL (70-104); LIPASE 74 U/L (73-393); SODIUM 134 MMOL/L (135-145); TOTAL CARBON DIOXIDE 26.7 MMOL/L (24-32); TOTAL PROTEIN 7.4 G/DL (6.4-8.2); eGFR 85 ML/MIN
[2018-09-03 01:22] LABS: WBC,URINE TNTC /HPF (0-4)
[2018-09-03 01:23] LABS: BACTERIA,URINE 2+ /HPF (Neg); MUCUS STRANDS NONE SEEN /LPF (Neg); SQUAMOUS EPITHELIAL CELL,UR FEW /LPF (FEW); WBC CLUMPS,URINE FEW /HPF (NEGATIVE)
[2018-09-03] MEDS ORDERED: CEPH500C5 PO (02:03)
--- NOTE | 2018-09-06 09:09 | NUR ---
SPOKE TO MOTHER DIALLO AGUILLON WHO IS THE HER SUPERVISOR TAPING. I WILL BE CALLING AUGMENTIN 875MG PO BID X 10 DAYS
--- NOTE | 2018-09-06 09:16 | NUR ---
CALLED IN AUGMENTIN 875MG TO [facility] ON [address].
== END 2018-09-03 02:19 | disposition home or self-care (01) ==
LOC: ER 23:47
DX: N39.0 Urinary tract infection, site not specified (principal); I10 Essential (primary) hypertension; J45.909 Unspecified asthma, uncomplicated; Z86.73 Personal history of transient ischemic attack (TIA), and cerebral infarction without residual deficits; Z90.710 Acquired absence of both cervix and uterus; Z60.2 Problems related to living alone; Z88.2 Allergy status to sulfonamides; Z88.8 Allergy status to other drugs, medicaments and biological substances; Z79.82 Long term (current) use of aspirin; Z79.899 Other long term (current) drug therapy
CPT/HCPCS: 36415; 74176; 80053; 81001; 83690; 85025; 87077; 87088; 87186; 99284

== ENCOUNTER 2019-05-09 10:37 | Outpatient (CLI) | payer MEDICARE, MEDICAID ==
[~2019-05-09 10:37] MED LIST changes: -OXYB5TAB11 PO; +OXYB5TAB16 PO; -TRAZ-218 PO; +TRAZ-251 PO; +barium sulfate 450ml oral suspension ONE
== END 2019-05-09 23:59 | disposition home or self-care (01) ==
LOC: RAD 10:37
PROVIDERS: ATTEND Internal Medicine Gastroenterology
DX: R13.10 Dysphagia, unspecified (principal); R05 Cough; R09.89 Other specified symptoms and signs involving the circulatory and respiratory systems; I10 Essential (primary) hypertension; J45.909 Unspecified asthma, uncomplicated; Z87.891 Personal history of nicotine dependence
CPT/HCPCS: 74220

== ENCOUNTER 2019-06-06 20:28 | Inpatient (IN) | payer MEDICARE, MEDICAID ==
[~2019-06-06] VITALS: Ht 162.6 cm; Wt 62.0 kg
[~2019-06-06 20:28] MED LIST changes: -barium sulfate 450ml oral suspension ONE
[2019-06-06] MEDS ORDERED: iohexol 350MG/ML 100ml bottle IV ONE (20:31)
[2019-06-06 20:48] LABS: BASOPHILS # (AUTO) 0.1 X10'3 (0-0.2); BASOPHILS % (AUTO) 0.7 % (0-1); EOSINOPHILS # (AUTO) 0.2 X10'3 (0-0.9); EOSINOPHILS % (AUTO) 2.5 % (0-6); HEMOGLOBIN 12.2 g/dl (12.0-16.0); LYMPHOCYTES # (AUTO) 3.7 X10'3 (1.1-4.8); LYMPHOCYTES % (AUTO) 48.7 % (21-51); MEAN CORPUSCULAR HEMOGLOBIN 31.7 PG (27.0-31.0); MEAN CORPUSCULAR HGB CONC 33.8 g/dL (33.0-36.5); MEAN CORPUSCULAR VOLUME 93.6 FL (78-98); MEAN PLATELET VOLUME 8.7 FL (7.4-10.4); MONOCYTES # (AUTO) 0.6 X10'3 (0-0.9); MONOCYTES % (AUTO) 8.3 % (2-12); NEUTROPHILS % (AUTO) 39.8 % (42-75); PLATELET COUNT 298 X10'3 (140-440); RED BLOOD COUNT 3.85 X10'6 (4.20-5.60); RED CELL DISTRIBUTION WIDTH 13.6 % (11.5-14.5); WHITE BLOOD COUNT 7.6 X10'3 (4.5-11.0)
--- NOTE | 2019-06-06 20:50 | NUR ---
pt back from CT scan - stroke RN at bedside.
--- NOTE | 2019-06-06 20:54 | NUR ---
family at bedside
--- NOTE | 2019-06-06 20:55 | NUR ---
Verbal consent received from family for neurotelemedicine evalutation.
[2019-06-06 20:57] LABS: ALANINE AMINOTRANSFERASE 24 U/L (12-78); ALBUMIN 3.7 G/DL (3.4-5.0); ALBUMIN/GLOBULIN RATIO 0.9 (1.1-1.5); ALKALINE PHOSPHATASE 116 IU/L (46-116); ANION GAP 6 (8-16); ASPARTATE AMINO TRANSFERASE 16 U/L (10-37); BILIRUBIN,TOTAL 0.2 MG/DL (0.1-1.0); BLOOD UREA NITROGEN 14 MG/DL (7-18); BUN/CREATININE RATIO 17.5 (6.6-38.0); CALCIUM 9.4 MG/DL (8.5-10.1); CHLORIDE 104 MMOL/L (99-107); GLUCOSE 118 MG/DL (70-104); POTASSIUM 4.7 MMOL/L (3.5-5.1); SODIUM 137 MMOL/L (135-145); TOTAL CARBON DIOXIDE 27.4 MMOL/L (24-32); eGFR 71 ML/MIN
--- NOTE | 2019-06-06 20:57 | NUR ---
teleneuro in progress.
[2019-06-06 21:00] LABS: PARTIAL THROMBOPLASTIN TIME 28 SECONDS (22-32)
--- NOTE | 2019-06-06 21:05 | NUR ---
pt is answering questions appropriately and able to identify family members at bedside. she is very emotional and crying.
--- NOTE | 2019-06-06 21:11 | NUR ---
sensation is intact to bilateral face, arms and legs. she is able to raise the right arm and leg. she moves the left leg but can't raise the left arm. she is able to state the events leading up to the incident in the shower. she remains emotional - teleneuro still in progress.
--- NOTE | 2019-06-06 21:38 | NUR ---
per stroke RN - keep pt NPO as she did not pass swallow study.
[2019-06-06] MEDS ORDERED: ATOR10TA70 PO (22:18)
[2019-06-06] MEDS ORDERED: CITA10TA9 PO (22:18)
[2019-06-06] MEDS ORDERED: NITR100C11 PO (22:18)
[2019-06-06] MEDS ORDERED: CLOP75TA35 PO (22:18)
[2019-06-06] MEDS ORDERED: DOCU-148 PO (22:18)
[2019-06-06] MEDS ORDERED: ESTR42.510 VG (22:18)
[2019-06-06] MEDS ORDERED: LACT1CAP65 PO (22:20)
[2019-06-06 22:48] LABS: CLARITY,URINE SLIGHTLY CLOUDY (Clear); COLOR,URINE YELLOW (Yellow); GLUCOSE, URINE NEGATIVE (Neg); KETONES,URINE NEGATIVE (Neg); LEUKOCYTE ESTERASE ,URINE SMALL (Neg); NITRITES, URINE NEGATIVE (Neg); OCCULT BLOOD,URINE SMALL (Neg); PH,URINE 6.5 (4.8-8.0); PROTEIN,URINE NEGATIVE (Neg); UROBILINOGEN,URINE 0.2 E.U/dL (0.2-1.0)
[2019-06-06 22:50] LABS: UA COLLECTION TYPE FOLEY CATH
[2019-06-06 22:52] LABS: WBC,URINE 50-100 /HPF (0-4)
[2019-06-06 22:53] LABS: BACTERIA,URINE FEW /HPF (Neg); SQUAMOUS EPITHELIAL CELL,UR FEW /LPF (FEW); YEAST MANY /HPF (NEGATIVE)
--- NOTE | 2019-06-06 23:06 | NUR ---
PT CONTINUES TO IMPROVE AND IS AT BASELINE PER FAMILY. SHE DENIES COMPLAINTS/NEEDS AT THIS TIME. PT AND FAMILY HAVE BEEN UPDATED ON PLAN OF CARE.
--- NOTE | 2019-06-06 23:32 | NUR ---
MOTHER HAS QUESTIONED WHY THE RAILS ARE UP ON THE BED. ADVISED HER IT WAS FOR PATIENT SAFETY. SHE STATES "SHE IS NOT GOING TO GET UP AND WALK OUT OF HERE" - I STATED THAT IT IS ALSO USED TO PREVENT PEOPLE FROM FALLING OUT OF BED. SHE THEN STATES "I TAKE CARE OF HER ALL DAY AND NIGHT. I GO IN THE ROOM 3-4 TIMES DURING THE NIGHT AND SHE NEVER MOVES, SHE WON'T ROLL OUT OF BED" - I ADVISED HER THAT THE RAILS WILL REMAIN UP REGARDLESS. SHE CONTINUALLY ASKS WHEN THE HOSPITALIST WILL BE IN. I HAVE TOLD HER MULTIPLE TIMES THAT HE IS AWARE OF HER AND KNOWS SHE NEEDS TO BE SEEN BUT SHE STATES, "I AM SURE IT WON'T HAPPEN ANYTIME SOON" FAMILY HAS BEEN ADVISED THAT REGARDLESS OF WHERE PT IS LOCATED IN THE HOSPITAL THAT SHE WILL BE TAKEN CARE OF JUST THE SAME.
--- NOTE | 2019-06-07 00:55 | NUR ---
I have received report from Benjamin ASHLEY and had the opportunity to ask questions.
[2019-06-07] MEDS ORDERED: magnesium 4gm in 100ml NS 100 ML IV PRN (01:10)
[2019-06-07] MEDS ORDERED: potassium Cl 20 mEq SR tablet PO PRN (01:10)
[2019-06-07] MEDS ORDERED: magnesium hydroxide 30ml (MOM) UD suspension PO PRN (01:10)
[2019-06-07] MEDS ORDERED: mag hydrox/Alum hydrox/simeth 30ml oral suspension PO PRN (01:10)
[2019-06-07] MEDS ORDERED: acetaminophen 325mg tablet PO PRN (01:10)
[2019-06-07] MEDS ORDERED: potassium CL 10mEq/100ml bag 100 ML IV PRN ×2 (01:10)
[2019-06-07] MEDS ORDERED: magnesium 2GM in 50ml NS 50 ML IV PRN (01:10)
[2019-06-07] MEDS ORDERED: ondansetron/PF 4mg/2ml inj IV PRN (01:10)
[2019-06-07 02:00] VITALS: BP 166/76
[2019-06-07] MEDS: normal saline 1000ml 1,000 ML IV SCH ×2 (02:00→15:57)
--- NOTE | 2019-06-07 02:01 | NUR ---
SAFETY EQUIPMENT TESTING SPECIALIST CALLED TO COMPARE CURRENT EKG WITH HER MONITOR, WILL PERFORM ANOTHER EKG TO R/O NONSTEMI.
--- NOTE | 2019-06-07 02:46 | NUR ---
HARDWARE DEVELOPER CONFIRMED "NO CHANGE" WITH NEW STRIP ; DUE TO LEAD PLACEMENT.
[2019-06-07 06:00] VITALS: BP 141/59
--- NOTE | 2019-06-07 06:00 | NUR ---
Patient in room ORTHO 4014. I have received report from and had the opportunity to ask questions and assume patient care GABI Gomez.
--- NOTE | 2019-06-07 06:47 | NUR ---
Problems reprioritized. Patient report given, questions answered & plan of care reviewed with Sabrina Lowe.
[2019-06-07] MEDS: K and/or MAG REPLACEMENT MC SCH (08:00)
[2019-06-07] MEDS ORDERED: CefTRIAXone/D5W-Rocephin 1gm 50 ML IV SCH (08:00)
--- NOTE | 2019-06-07 08:20 | NUR ---
Paged Dr Stallworth: MESSAGE: [id number] Randi Encinas. ST complete. passed swallow/Mechanical soft. Ordering breakfast tray, do you want pt on heart healthy diet? thank you, Sabrina [phone]
[2019-06-07 10:00] VITALS: BP 180/83
[2019-06-07] MEDS ORDERED: pneumococcal 23-VAL P-sac vacc 25 mcg/0.5ml vial IMVAC ONE ×2 (10:00→12:40)
[2019-06-07] MEDS ORDERED: FLU VACC QS2019-20 36MOS UP/PF 60 MCG/0.5 ML SYRINGE IMVAC ONE (10:00)
[2019-06-07] MEDS: clopidogrel 75mg tablet PO SCH (11:01)
[2019-06-07] MEDS: oxybutynin 5mg tablet PO SCH ×2 (11:02→20:14)
[2019-06-07] MEDS: lactobacillus rhamnosus 10,000 MMU CELLS/CAPSULE PO SCH (11:02)
[2019-06-07] MEDS: vitamin D (cholecalciferol) 1,000 unit tablet PO SCH ×2 (11:02→20:14)
[2019-06-07] MEDS: atorvastatin 10mg tablet PO SCH (11:02)
[2019-06-07] MEDS: nitrofuran/nitrofuran macrocrysal 100 MG capsule PO SCH (11:02)
[2019-06-07] MEDS: docusate sod 100mg capsule PO SCH ×3 (11:03→20:14)
[2019-06-07] MEDS: pantoprazole 40mg Tablet.DR PO SCH (11:03)
[2019-06-07] MEDS: CefTRIAXone/D5W-Rocephin 1gm 50 ML IV SCH (11:04)
[2019-06-07 14:00] VITALS: BP 168/81
[2019-06-07 18:00] VITALS: BP 170/74
--- NOTE | 2019-06-07 18:25 | NUR ---
Received report from GABI Bennett. Assumed pt care.
[2019-06-07] MEDS: CITALOpram 10mg tablet PO SCH (20:14)
--- NOTE | 2019-06-07 21:54 | NUR ---
Assessment completed at 1940. Addendum: 06/07/19 at 2155 by Anna Dodson RN Amended: Links added.
[2019-06-07 22:00] VITALS: BP 175/63
[2019-06-08] MEDS: normal saline 1000ml 1,000 ML IV SCH ×3 (00:50→16:04)
[2019-06-08 02:00] VITALS: BP 175/86
[2019-06-08 06:00] VITALS: BP 165/79
[2019-06-08 06:05] LABS: BASOPHILS % (AUTO) 0.5 % (0-1); EOSINOPHILS # (AUTO) 0.2 X10'3 (0-0.9); EOSINOPHILS % (AUTO) 3.1 % (0-6); HEMATOCRIT 31.2 % (35.0-45.0); HEMOGLOBIN 10.6 g/dl (12.0-16.0); LYMPHOCYTES # (AUTO) 2.9 X10'3 (1.1-4.8); LYMPHOCYTES % (AUTO) 39.7 % (21-51); MEAN CORPUSCULAR HEMOGLOBIN 32.2 PG (27.0-31.0); MEAN CORPUSCULAR HGB CONC 34.1 g/dL (33.0-36.5); MEAN CORPUSCULAR VOLUME 94.6 FL (78-98); MEAN PLATELET VOLUME 8.4 FL (7.4-10.4); MONOCYTES # (AUTO) 0.6 X10'3 (0-0.9); MONOCYTES % (AUTO) 8.2 % (2-12); NEUTROPHILS # (AUTO) 3.5 X10'3 (1.8-7.7); NEUTROPHILS % (AUTO) 48.5 % (42-75); PLATELET COUNT 234 X10'3 (140-440); RED BLOOD COUNT 3.29 X10'6 (4.20-5.60); RED CELL DISTRIBUTION WIDTH 13.8 % (11.5-14.5); WHITE BLOOD COUNT 7.2 X10'3 (4.5-11.0)
[2019-06-08 06:30] LABS: ALANINE AMINOTRANSFERASE 20 U/L (12-78); ALBUMIN/GLOBULIN RATIO 0.8 (1.1-1.5); ALKALINE PHOSPHATASE 101 IU/L (46-116); ANION GAP 8 (8-16); ASPARTATE AMINO TRANSFERASE 15 U/L (10-37); BILIRUBIN,TOTAL 0.3 MG/DL (0.1-1.0); BLOOD UREA NITROGEN 5 MG/DL (7-18); BUN/CREATININE RATIO 8.5 (6.6-38.0); CALCIUM 8.5 MG/DL (8.5-10.1); CHLORIDE 107 MMOL/L (99-107); CHOL/HDL RATIO 3.4 (0.00-4.99); CHOLESTEROL 108 MG/DL (0-200); CREATININE 0.59 MG/DL (0.40-0.90); GLUCOSE 106 MG/DL (70-104); HDL CHOLESTEROL 32 MG/DL (35-60); LDL CHOLESTEROL 48 MG/DL (50-100); MAGNESIUM 1.6 MG/DL (1.5-2.4); POTASSIUM 3.6 MMOL/L (3.5-5.1); SODIUM 139 MMOL/L (135-145); TOTAL CARBON DIOXIDE 23.6 MMOL/L (24-32); TOTAL PROTEIN 6.7 G/DL (6.4-8.2); TRIGLYCERIDES 163 MG/DL (20-135); eGFR > 90 ML/MIN
--- NOTE | 2019-06-08 06:34 | NUR ---
Patient report given, questions answered and plan of care reviewed with GABI Stokes
[2019-06-08] MEDS: K and/or MAG REPLACEMENT MC SCH (08:00)
[2019-06-08] MEDS: pantoprazole 40mg Tablet.DR PO SCH (09:12)
[2019-06-08] MEDS: clopidogrel 75mg tablet PO SCH (09:13)
[2019-06-08] MEDS: vitamin D (cholecalciferol) 1,000 unit tablet PO SCH ×2 (09:13→20:42)
[2019-06-08] MEDS: nitrofuran/nitrofuran macrocrysal 100 MG capsule PO SCH (09:13)
[2019-06-08] MEDS: atorvastatin 10mg tablet PO SCH (09:13)
[2019-06-08] MEDS: lactobacillus rhamnosus 10,000 MMU CELLS/CAPSULE PO SCH (09:13)
[2019-06-08] MEDS: docusate sod 100mg capsule PO SCH ×3 (09:13→20:42)
[2019-06-08] MEDS: oxybutynin 5mg tablet PO SCH ×2 (09:13→20:42)
[2019-06-08] MEDS: CefTRIAXone/D5W-Rocephin 1gm 50 ML IV SCH (09:13)
[2019-06-08 10:00] VITALS: BP 187/81
--- NOTE | 2019-06-08 10:37 | NUR ---
Mother here inquiring about patient ambulating with PT today, pending dc home. Waiting for Venous US secondary to new complaint of right calf pain.
[2019-06-08 14:00] VITALS: BP 171/86
--- NOTE | 2019-06-08 15:09 | NUR ---
Mother at bedside with PT, states patient is not at baseline with mobility. Unsafe to dc home today. Dr Stallworth and Olga GUERRA both notified. Patient is a mod of 2 to transfer.
--- NOTE | 2019-06-08 17:15 | NUR ---
Dr Stallworth at bedside talking with patient & her daughter
[2019-06-08 18:00] VITALS: BP 179/77
[2019-06-08] MEDS: CITALOpram 10mg tablet PO SCH (20:42)
[2019-06-08 22:42] VITALS: BP 174/86
--- NOTE | 2019-06-08 22:48 | NUR ---
BP HAS BEEN RUNNING PERMISSIVELY HIGH R/T POSS STROKE VS. TIA.
[2019-06-09] MEDS: normal saline 1000ml 1,000 ML IV SCH ×3 (01:27→23:06)
[2019-06-09 06:00] VITALS: BP 165/83
[2019-06-09 06:18] LABS: BASOPHILS % (AUTO) 0.3 % (0-1); EOSINOPHILS # (AUTO) 0.2 X10'3 (0-0.9); EOSINOPHILS % (AUTO) 2.4 % (0-6); HEMATOCRIT 30.8 % (35.0-45.0); HEMOGLOBIN 10.4 g/dl (12.0-16.0); LYMPHOCYTES # (AUTO) 3.3 X10'3 (1.1-4.8); LYMPHOCYTES % (AUTO) 33.2 % (21-51); MEAN CORPUSCULAR HEMOGLOBIN 31.9 PG (27.0-31.0); MEAN CORPUSCULAR HGB CONC 33.9 g/dL (33.0-36.5); MEAN CORPUSCULAR VOLUME 94.3 FL (78-98); MEAN PLATELET VOLUME 8.8 FL (7.4-10.4); MONOCYTES # (AUTO) 0.7 X10'3 (0-0.9); MONOCYTES % (AUTO) 6.6 % (2-12); NEUTROPHILS # (AUTO) 5.7 X10'3 (1.8-7.7); NEUTROPHILS % (AUTO) 57.5 % (42-75); PLATELET COUNT 240 X10'3 (140-440); RED BLOOD COUNT 3.26 X10'6 (4.20-5.60); RED CELL DISTRIBUTION WIDTH 13.6 % (11.5-14.5); WHITE BLOOD COUNT 9.9 X10'3 (4.5-11.0)
[2019-06-09 06:35] LABS: CHLORIDE 109 MMOL/L (99-107); GLUCOSE 109 MG/DL (70-104); POTASSIUM 3.2 MMOL/L (3.5-5.1); SODIUM 142 MMOL/L (135-145); TOTAL CARBON DIOXIDE 23.9 MMOL/L (24-32)
[2019-06-09 06:36] LABS: ALANINE AMINOTRANSFERASE 21 U/L (12-78); ALBUMIN 2.8 G/DL (3.4-5.0); ALBUMIN/GLOBULIN RATIO 0.8 (1.1-1.5); ALKALINE PHOSPHATASE 94 IU/L (46-116); ANION GAP 9 (8-16); ASPARTATE AMINO TRANSFERASE 15 U/L (10-37); BILIRUBIN,TOTAL 0.3 MG/DL (0.1-1.0); BLOOD UREA NITROGEN 4 MG/DL (7-18); CALCIUM 8.6 MG/DL (8.5-10.1); CREATININE 0.57 MG/DL (0.40-0.90); MAGNESIUM 1.9 MG/DL (1.5-2.4); TOTAL PROTEIN 6.4 G/DL (6.4-8.2); eGFR > 90 ML/MIN
--- NOTE | 2019-06-09 07:02 | NUR ---
Patient in room ORTHO 4014. I have received report from Nikki ASHLEY and had the opportunity to ask questions and assume patient care.
--- NOTE | 2019-06-09 07:03 | NUR ---
REPORT GIVEN TO GABI REDDING.
[2019-06-09] MEDS: nitrofuran/nitrofuran macrocrysal 100 MG capsule PO SCH (08:38)
[2019-06-09] MEDS: potassium Cl 20 mEq SR tablet PO PRN ×3 (08:39→20:30)
[2019-06-09] MEDS: lactobacillus rhamnosus 10,000 MMU CELLS/CAPSULE PO SCH (08:39)
[2019-06-09] MEDS: vitamin D (cholecalciferol) 1,000 unit tablet PO SCH ×2 (08:39→20:26)
[2019-06-09] MEDS: atorvastatin 10mg tablet PO SCH (08:39)
[2019-06-09] MEDS: docusate sod 100mg capsule PO SCH ×3 (08:39→20:27)
[2019-06-09] MEDS: pantoprazole 40mg Tablet.DR PO SCH (08:40)
[2019-06-09] MEDS: lisinopril 5mg tablet PO SCH ×2 (08:40→20:26)
[2019-06-09] MEDS: clopidogrel 75mg tablet PO SCH (08:40)
[2019-06-09] MEDS: oxybutynin 5mg tablet PO SCH ×2 (08:40→20:26)
[2019-06-09] MEDS: CefTRIAXone/D5W-Rocephin 1gm 50 ML IV SCH (08:41)
[2019-06-09] MEDS: K and/or MAG REPLACEMENT MC SCH (08:42)
[2019-06-09 10:00] VITALS: BP 180/86
[2019-06-09] MEDS ORDERED: FLU VACC QS2019-20 36MOS UP/PF 60 MCG/0.5 ML SYRINGE IMVAC ONE (12:40)
--- NOTE | 2019-06-09 18:23 | NUR ---
Problems reprioritized. Patient report given, questions answered & plan of care reviewed with Leela ASHLEY.
--- NOTE | 2019-06-09 19:00 | NUR ---
Patient in room ORTHO 4014. I have received report from Ramesh ASHLEY and had the opportunity to ask questions and assume patient care.
[2019-06-09] MEDS: CITALOpram 10mg tablet PO SCH (20:27)
[2019-06-10 06:00] VITALS: BP 149/67
--- NOTE | 2019-06-10 06:28 | NUR ---
Patient in room ORTHO 4014. I have received report from Keron ASHELY and had the opportunity to ask questions and assume patient care.
[2019-06-10 06:37] LABS: BASOPHILS % (AUTO) 0.5 % (0-1); EOSINOPHILS # (AUTO) 0.3 X10'3 (0-0.9); EOSINOPHILS % (AUTO) 3.8 % (0-6); HEMATOCRIT 29.7 % (35.0-45.0); HEMOGLOBIN 10.2 g/dl (12.0-16.0); LYMPHOCYTES # (AUTO) 2.6 X10'3 (1.1-4.8); LYMPHOCYTES % (AUTO) 34.1 % (21-51); MEAN CORPUSCULAR HEMOGLOBIN 32.1 PG (27.0-31.0); MEAN CORPUSCULAR HGB CONC 34.4 g/dL (33.0-36.5); MEAN CORPUSCULAR VOLUME 93.3 FL (78-98); MEAN PLATELET VOLUME 8.8 FL (7.4-10.4); MONOCYTES # (AUTO) 0.6 X10'3 (0-0.9); MONOCYTES % (AUTO) 8.2 % (2-12); NEUTROPHILS % (AUTO) 53.4 % (42-75); PLATELET COUNT 241 X10'3 (140-440); RED BLOOD COUNT 3.18 X10'6 (4.20-5.60); RED CELL DISTRIBUTION WIDTH 13.8 % (11.5-14.5); WHITE BLOOD COUNT 7.5 X10'3 (4.5-11.0)
[2019-06-10 06:49] LABS: ALANINE AMINOTRANSFERASE 21 U/L (12-78); ALBUMIN 2.9 G/DL (3.4-5.0); ALBUMIN/GLOBULIN RATIO 0.8 (1.1-1.5); ALKALINE PHOSPHATASE 92 IU/L (46-116); ANION GAP 7 (8-16); ASPARTATE AMINO TRANSFERASE 19 U/L (10-37); BILIRUBIN,TOTAL 0.4 MG/DL (0.1-1.0); BLOOD UREA NITROGEN 6 MG/DL (7-18); BUN/CREATININE RATIO 9.5 (6.6-38.0); CALCIUM 8.9 MG/DL (8.5-10.1); CHLORIDE 107 MMOL/L (99-107); CREATININE 0.63 MG/DL (0.40-0.90); GLUCOSE 116 MG/DL (70-104); MAGNESIUM 1.6 MG/DL (1.5-2.4); POTASSIUM 4.3 MMOL/L (3.5-5.1); SODIUM 137 MMOL/L (135-145); TOTAL CARBON DIOXIDE 22.6 MMOL/L (24-32); TOTAL PROTEIN 6.4 G/DL (6.4-8.2); eGFR > 90 ML/MIN
[2019-06-10] MEDS: pantoprazole 40mg Tablet.DR PO SCH (07:57)
[2019-06-10] MEDS: atorvastatin 10mg tablet PO SCH (07:57)
[2019-06-10] MEDS: lactobacillus rhamnosus 10,000 MMU CELLS/CAPSULE PO SCH (07:58)
[2019-06-10] MEDS: nitrofuran/nitrofuran macrocrysal 100 MG capsule PO SCH (07:58)
[2019-06-10] MEDS: clopidogrel 75mg tablet PO SCH (07:58)
[2019-06-10] MEDS: docusate sod 100mg capsule PO SCH ×3 (07:58→20:24)
[2019-06-10] MEDS: vitamin D (cholecalciferol) 1,000 unit tablet PO SCH ×2 (07:58→20:24)
[2019-06-10] MEDS: lisinopril 5mg tablet PO SCH ×2 (07:58→20:23)
[2019-06-10] MEDS: oxybutynin 5mg tablet PO SCH ×2 (07:58→20:23)
[2019-06-10] MEDS: enoxaparin 40mg/0.4ml syringe SUBCUT SCH (08:01)
[2019-06-10] MEDS: K and/or MAG REPLACEMENT MC SCH (08:02)
[2019-06-10] MEDS: normal saline 1000ml 1,000 ML IV SCH ×2 (09:06→19:06)
[2019-06-10 18:00] VITALS: BP 165/82
--- NOTE | 2019-06-10 18:20 | NUR ---
Received report from Ramesh ASHLEY. assumed care of patient.
--- NOTE | 2019-06-10 18:23 | NUR ---
Problems reprioritized. Patient report given, questions answered & plan of care reviewed with Vera RN.
[2019-06-10] MEDS: CITALOpram 10mg tablet PO SCH (20:23)
[2019-06-10 22:00] VITALS: BP 142/68
[2019-06-11 02:00] VITALS: BP 159/77
[2019-06-11] MEDS: normal saline 1000ml 1,000 ML IV SCH ×2 (05:23→15:06)
[2019-06-11 06:00] VITALS: BP 162/22
[2019-06-11 06:18] LABS: BASOPHILS % (AUTO) 0.6 % (0-1); EOSINOPHILS # (AUTO) 0.2 X10'3 (0-0.9); EOSINOPHILS % (AUTO) 3.1 % (0-6); HEMATOCRIT 29.3 % (35.0-45.0); HEMOGLOBIN 9.9 g/dl (12.0-16.0); LYMPHOCYTES # (AUTO) 2.3 X10'3 (1.1-4.8); LYMPHOCYTES % (AUTO) 29.3 % (21-51); MEAN CORPUSCULAR HEMOGLOBIN 32.2 PG (27.0-31.0); MEAN CORPUSCULAR HGB CONC 33.9 g/dL (33.0-36.5); MEAN CORPUSCULAR VOLUME 95.1 FL (78-98); MEAN PLATELET VOLUME 8.7 FL (7.4-10.4); MONOCYTES # (AUTO) 0.5 X10'3 (0-0.9); MONOCYTES % (AUTO) 6.5 % (2-12); NEUTROPHILS # (AUTO) 4.7 X10'3 (1.8-7.7); NEUTROPHILS % (AUTO) 60.5 % (42-75); PLATELET COUNT 234 X10'3 (140-440); RED BLOOD COUNT 3.09 X10'6 (4.20-5.60); RED CELL DISTRIBUTION WIDTH 13.3 % (11.5-14.5); WHITE BLOOD COUNT 7.9 X10'3 (4.5-11.0)
[2019-06-11 06:35] LABS: ALANINE AMINOTRANSFERASE 21 U/L (12-78); ALBUMIN 2.8 G/DL (3.4-5.0); ALBUMIN/GLOBULIN RATIO 0.8 (1.1-1.5); ALKALINE PHOSPHATASE 91 IU/L (46-116); ANION GAP 6 (8-16); ASPARTATE AMINO TRANSFERASE 18 U/L (10-37); BILIRUBIN,TOTAL 0.4 MG/DL (0.1-1.0); BLOOD UREA NITROGEN 4 MG/DL (7-18); BUN/CREATININE RATIO 6.3 (6.6-38.0); CALCIUM 8.5 MG/DL (8.5-10.1); CHLORIDE 107 MMOL/L (99-107); CREATININE 0.63 MG/DL (0.40-0.90); GLUCOSE 113 MG/DL (70-104); MAGNESIUM 1.4 MG/DL (1.5-2.4); POTASSIUM 3.9 MMOL/L (3.5-5.1); SODIUM 139 MMOL/L (135-145); TOTAL PROTEIN 6.3 G/DL (6.4-8.2); eGFR > 90 ML/MIN
--- NOTE | 2019-06-11 06:41 | NUR ---
Gave report to Aaliyah ASHLEY.
[2019-06-11] MEDS: docusate sod 100mg capsule PO SCH ×3 (09:47→20:06)
[2019-06-11] MEDS: pantoprazole 40mg Tablet.DR PO SCH (09:47)
[2019-06-11] MEDS: clopidogrel 75mg tablet PO SCH (09:48)
[2019-06-11] MEDS: lactobacillus rhamnosus 10,000 MMU CELLS/CAPSULE PO SCH (09:48)
[2019-06-11] MEDS: atorvastatin 10mg tablet PO SCH (09:48)
[2019-06-11] MEDS: oxybutynin 5mg tablet PO SCH ×2 (09:48→20:05)
[2019-06-11] MEDS: vitamin D (cholecalciferol) 1,000 unit tablet PO SCH ×2 (09:49→20:06)
[2019-06-11] MEDS: lisinopril 5mg tablet PO SCH ×2 (09:49→20:06)
[2019-06-11] MEDS: enoxaparin 40mg/0.4ml syringe SUBCUT SCH (09:50)
[2019-06-11] MEDS: nitrofuran/nitrofuran macrocrysal 100 MG capsule PO SCH (09:54)
[2019-06-11 10:00] VITALS: BP 182/74
[2019-06-11] MEDS ORDERED: potassium Cl 20 mEq SR tablet PO PRN ×2 (10:55)
[2019-06-11] MEDS ORDERED: potassium CL 10mEq/100ml bag 100 ML IV PRN (10:55)
[2019-06-11] MEDS ORDERED: magnesium Cl slow-release 64mg tablet PO PRN (13:00)
[2019-06-11] MEDS: K and/or MAG REPLACEMENT MC SCH (13:02)
[2019-06-11] MEDS: magnesium Cl slow-release 64mg tablet PO PRN ×2 (13:20→20:52)
[2019-06-11 14:00] VITALS: BP 142/71
[2019-06-11 18:00] VITALS: BP 151/75
--- NOTE | 2019-06-11 18:17 | NUR ---
Received report from Aaliyah ASHLEY. assumed care of patient.
[2019-06-11] MEDS: CITALOpram 10mg tablet PO SCH (20:06)
[2019-06-11 22:00] VITALS: BP 134/60
[2019-06-12 06:00] VITALS: BP 135/60
--- NOTE | 2019-06-12 06:29 | NUR ---
Gave report to Divya ASHLEY.
[2019-06-12 06:45] LABS: BASOPHILS % (AUTO) 0.4 % (0-1); EOSINOPHILS # (AUTO) 0.2 X10'3 (0-0.9); EOSINOPHILS % (AUTO) 2.5 % (0-6); HEMATOCRIT 28.3 % (35.0-45.0); HEMOGLOBIN 9.6 g/dl (12.0-16.0); LYMPHOCYTES # (AUTO) 2.1 X10'3 (1.1-4.8); LYMPHOCYTES % (AUTO) 27.3 % (21-51); MEAN CORPUSCULAR HGB CONC 33.8 g/dL (33.0-36.5); MEAN CORPUSCULAR VOLUME 94.5 FL (78-98); MEAN PLATELET VOLUME 9.1 FL (7.4-10.4); MONOCYTES # (AUTO) 0.5 X10'3 (0-0.9); MONOCYTES % (AUTO) 7.1 % (2-12); NEUTROPHILS # (AUTO) 4.7 X10'3 (1.8-7.7); NEUTROPHILS % (AUTO) 62.7 % (42-75); PLATELET COUNT 224 X10'3 (140-440); RED CELL DISTRIBUTION WIDTH 13.4 % (11.5-14.5); WHITE BLOOD COUNT 7.6 X10'3 (4.5-11.0)
[2019-06-12 06:53] LABS: ALANINE AMINOTRANSFERASE 21 U/L (12-78); ALBUMIN 2.7 G/DL (3.4-5.0); ALBUMIN/GLOBULIN RATIO 0.8 (1.1-1.5); ALKALINE PHOSPHATASE 86 IU/L (46-116); ANION GAP 6 (8-16); ASPARTATE AMINO TRANSFERASE 16 U/L (10-37); BILIRUBIN,TOTAL 0.3 MG/DL (0.1-1.0); BLOOD UREA NITROGEN 5 MG/DL (7-18); BUN/CREATININE RATIO 8.1 (6.6-38.0); CALCIUM 8.8 MG/DL (8.5-10.1); CHLORIDE 105 MMOL/L (99-107); CREATININE 0.62 MG/DL (0.40-0.90); GLUCOSE 127 MG/DL (70-104); MAGNESIUM 1.4 MG/DL (1.5-2.4); POTASSIUM 3.9 MMOL/L (3.5-5.1); SODIUM 137 MMOL/L (135-145); TOTAL CARBON DIOXIDE 26.4 MMOL/L (24-32); TOTAL PROTEIN 6.1 G/DL (6.4-8.2); eGFR > 90 ML/MIN
[2019-06-12] MEDS: docusate sod 100mg capsule PO SCH (08:54)
[2019-06-12] MEDS: pantoprazole 40mg Tablet.DR PO SCH (08:54)
[2019-06-12] MEDS: clopidogrel 75mg tablet PO SCH (08:55)
[2019-06-12] MEDS: lactobacillus rhamnosus 10,000 MMU CELLS/CAPSULE PO SCH (08:55)
[2019-06-12] MEDS: vitamin D (cholecalciferol) 1,000 unit tablet PO SCH (08:55)
[2019-06-12] MEDS: lisinopril 5mg tablet PO SCH (08:55)
[2019-06-12] MEDS: oxybutynin 5mg tablet PO SCH (08:55)
[2019-06-12] MEDS: nitrofuran/nitrofuran macrocrysal 100 MG capsule PO SCH (08:55)
[2019-06-12] MEDS: enoxaparin 40mg/0.4ml syringe SUBCUT SCH (08:56)
[2019-06-12] MEDS: atorvastatin 10mg tablet PO SCH (09:01)
== END 2019-06-12 14:10 | DRG 65 ==
LOC: ER 20:28 → ORTHO 4S 06-07 01:06 → OBSVTOIN 06-09 08:50
PROVIDERS: ADMIT Family Medicine; ATTEND Family Medicine
PROC: B3251ZZ Computerized Tomography (CT Scan) of Bilateral Common Carotid Arteries using Low Osmolar Contrast (ICD-10-PCS; 2019-06-06)
PROC: B32G1ZZ Computerized Tomography (CT Scan) of Bilateral Vertebral Arteries using Low Osmolar Contrast (ICD-10-PCS; 2019-06-06)
PROC: B3281ZZ Computerized Tomography (CT Scan) of Bilateral Internal Carotid Arteries using Low Osmolar Contrast (ICD-10-PCS; 2019-06-06)
PROC: 3E0234Z Introduction of Serum, Toxoid and Vaccine into Muscle, Percutaneous Approach (ICD-10-PCS; 2019-06-07)
PROC: 3E02340 Introduction of Influenza Vaccine into Muscle, Percutaneous Approach (ICD-10-PCS; principal; 2019-06-09)
DX: I63.9 Cerebral infarction, unspecified (principal); I16.1 Hypertensive emergency; I69.354 Hemiplegia and hemiparesis following cerebral infarction affecting left non-dominant side; N39.0 Urinary tract infection, site not specified; R47.01 Aphasia; J45.909 Unspecified asthma, uncomplicated; D64.9 Anemia, unspecified; F32.9 Major depressive disorder, single episode, unspecified; I10 Essential (primary) hypertension; I67.1 Cerebral aneurysm, nonruptured; Z60.2 Problems related to living alone; K21.9 Gastro-esophageal reflux disease without esophagitis; N32.81 Overactive bladder; Z66 Do not resuscitate; Z74.01 Bed confinement status; Z79.02 Long term (current) use of antithrombotics/antiplatelets; Z87.891 Personal history of nicotine dependence; Z90.710 Acquired absence of both cervix and uterus; Z23 Encounter for immunization; Z88.2 Allergy status to sulfonamides; Z79.899 Other long term (current) drug therapy
CPT/HCPCS: 36415; 70450; 70496; 71045; 80053; 80061; 81001; 83735; 85025; 85610; 85651; 85730; 86140; 87081; 87088; 92508; 92616; 93005; 93306; 93971; 97110; 97112; 97116; 97161; 97530; 97535; 99291; G0378; J0696; J1650; J2405; J7030; Q2037; Q9967

== ENCOUNTER 2019-10-26 15:07 | Outpatient (CLI) | payer MEDICARE, MEDICAID ==
[~2019-10-26 15:07] MED LIST changes: -ASPI-611 PO; +ATOR10TA70 PO; -AZIT-72 PO; +CITA10TA9 PO; +CLOP75TA35 PO; -COMIN IH; +DOCU-148 PO; -ESTR0.6261 PO; +ESTR42.510 VG; -FEXO-61 PO; -FLUT16SP12; -KEN0.1O TP; -LISI-600 PO; -LORA-512 PO; -LOSA50TA3 PO; -METO50TA7 PO; -MOME17SP BOTHNARES; -MULT1TAB74 PO; +NITR100C11 PO; -NYST30CR2 TP; -OMEG-79 PO; -RANI150T8 PO; -SIME125C88 CORPAK; -TRAZ-251 PO
== END 2019-10-26 23:59 | disposition home or self-care (01) ==
LOC: RAD 15:07
PROVIDERS: ATTEND Student in an Organized Health Care Education/Training Program
DX: K21.9 Gastro-esophageal reflux disease without esophagitis (principal); I69.391 Dysphagia following cerebral infarction; E78.5 Hyperlipidemia, unspecified; R32 Unspecified urinary incontinence
CPT/HCPCS: 74230